=== PATIENT | male | born 1990 ===

== ENCOUNTER 2024-10-25 06:25 | Outpatient (REF) | payer OTHER, SELFPAY ==
--- NOTE | ~2024-10-25 | US_ITS ---
CLINICAL HISTORY: RUQ PAIN US abdomen limited Comparison: None provided Findings: The visualized pancreas is normal. Aorta and inferior vena cava are not included in this exam. The right hepatic lobe measures 13.7 cm in length. There is no intrahepatic bile duct dilatation. Common bile duct is 0.2 cm in thickness. There are questionable polyps or tumefactive sludge in the gallbladder. For example, there is an echogenic area within the gallbladder lumen abutting the wall measuring 0.7 cm. There is color flow over this region which may be artifactual or due to blood flow. Surgical consultation is recommended. Adenomyomatosis of the gallbladder. The main portal vein is antegrade. Right kidney is 10.6 cm in length. No ascites. IMPRESSION: 1. There are questionable polyps or tumefactive sludge in the gallbladder. For example, there is an echogenic area within the gallbladder lumen abutting the wall measuring 0.7 cm. There is color flow over this region which may be artifactual or due to blood flow. Surgical consultation is recommended. 2. Adenomyomatosis of the gallbladder. This document has been electronically signed by: Henry Martinez DO on 10/26/2024 09:54:33
== END 2024-10-25 06:26 | disposition home or self-care (01) ==
LOC: HO.UMASIMG 06:25
PROVIDERS: Visit Provider Physician Assistant Medical
DX: R10.11 Right upper quadrant pain (principal); R21 Rash and other nonspecific skin eruption
CPT/HCPCS: 76705

== ENCOUNTER → 2024-10-25 08:00 | Outpatient (BNV) | payer OTHER, SELFPAY | PROVIDERS: Visit Provider Family Medicine | DX: K82.9 Disease of gallbladder, unspecified (principal) | CPT/HCPCS: 76705 ==